=== PATIENT | female | born 1980 | race African-American/Black ===

== ENCOUNTER 2017-04-30 10:42 | Outpatient (CLI) ==
--- NOTE | 2017-04-30 12:39 | CT ---
EXAM: CT Abdomen without contrast. CT Pelvis without contrast. HISTORY: Nausea. Low back pain. Hematuria. COMPARISON: None available. TECHNIQUE: Multiple axial images of the abdomen and pelvis were obtained without intravenous contra st. Images were reformatted in the coronal plane. FINDINGS: Please note that evaluation of the abdominal and pelvic structures is limited due to lack of intravenous contrast. The lung bases are clear. No acute osseous abnormality identified. The liver is diffusely low density. Gallbladder is absent. Pancreas, spleen, adrenal glands demons trate normal contour. No calcified renal stones, hydronephrosis or perinephric inflammation identif ied. The bowel is normal in course and caliber without evidence for obstruction or inflammatory process. The appendix is normal. Scattered nonenlarged mesenteric and retroperitoneal lymph nodes are prese nt. Uterus demonstrates normal contour. Urinary bladder is unremarkable. Phleboliths noted in the pelvis. No free fluid or free air identified IMPRESSION: 1. No evidence for nephrolithiasis. No acute abnormality in the abdomen or pelvis. 2. Fatty infiltration of the liver.
== END 2017-04-30 10:43 | disposition home or self-care (01) ==
LOC: RAD 10:42
PROVIDERS: ATTEND Family Medicine
DX: R10.9 Unspecified abdominal pain (principal); R31.9 Hematuria, unspecified; R50.9 Fever, unspecified; R11.0 Nausea
CPT/HCPCS: 74176

== ENCOUNTER 2017-10-18 08:34 | Outpatient (RCR) ==
--- NOTE | 2017-10-18 15:52 | RS.OPPTEV2 ---
Date of Note: 10/18/17 Visit #: 1 Date of Evaluation: 10/18/17 Payer Source: Insurance Surgery Performed?: No Treatment Diagnosis: Neck pain and radicular symptoms into UE's. History of Condition/Mechanism of Injury:: Patient reports a history of neck pain. She attended therapy in 2013 for neck pain and stiffness. 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 States following therapy in 2013, she did well for a while and was taking Ibuprofen. She then discovered she had an ulcer and had to stop taking Ibuprofen. Her symptoms since then have progressively gotten worse. Prior Level of Function.....Patient was independent with: ADL's, Self Care, Work /Vocation, Caregiving, Ambulation/Mobility, Community Integration/Access Functional Limitations: Sleep, Self Care, ADL's Current Subjective/complaints:: Patient reports neck pain and radiating symptoms into the UE's. States she has continuous tingling into the 3rd and 4th fingers of both hands, unless she takes the Gabapentin. States she is having problems with headaches/migraines since November or December of this year. States she just had a migraine on Sunday. States she does not notice a lot of stiffness, but her neck hurts when she moves it. States her sleep is very much limited due to neck pain. 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 She reports typing at the computer increases her pain. She recently got a stand up desk, which she feels is going to help. Reports use of right UE causes increased pain in the right upper traps region. Medical History Surgical History: Cholecystectomy, Surgical History Comments:: Lung surgery Smoking Status: Never smoker Hx Home Medications: Gabapentin Patient's Goals: Her goal is to get relief of neck and UE symptoms. Pain Assessment - Pain Description Pain Location: neck Current Pain Intensity: 5/10 Worst Pain Intensity: 8/10 Functional Outcome Measure Neck Disability Index: 48 - G Codes & Severity Modifier G Codes & Modifier: NA Source of G Code score: NA Observation - Observation Posture: Forward Head, Rounded Shoulders, Scapula Asymmetry (right scapula raised) Handedness: Right - ROM Comments: Cervical AROM is WFL's. Demonstrates less AROM with left lateral flexion and left cervical rotation than compared to the right. Reports pain with range of motion at end range in all directions. - Strength Comments: UE strength is 5/5 throughout. Bilateral UE AROM is WFL's. - Special Tests VA Test: Negative Thoracic Outlet Test: Negative Left, Negative Right - Special Tests Shoulder Empty Can (Supraspinatus) Test: Negative Right Shoulder Yergason's Test: Negative Right Shoulder Speed's Sign Test: Negative Right Shoulder Drop Arm Test: Negative Right Shoulder Apley's Scratch Test: Negative Right Macerator Operator Strength Left Hand Macerator Operator Strength: 72 lbs. Right Hand Macerator Operator Strength: 75 lbs. Dynamometer Testing Position: 2nd Position Palpation Comments:: Demonstrates moderate increased muscle tone along the right upper and middle traps. She exhibits multiple active trigger points along the superior and medial border of the right scapula. Sensation - Sensation Comments: Reports current tingling in the 3rd and 4th digits of bilateral hands. Interventions - Exercise/Activities/Manual Therapy Exercises/Activities: Patient instructed in stretching into cervical lateral flexion, lateral flexion with horizontal adduction of ipsilateral UE, and corner stretch (pec stretch). Manual Therapy: x 10 mins Trigger point work to the upper traps. Located at two along the superior and medial border of the right scapula that radiated pain into the christian and up the cervical spine. HOME EXERCISE PROGRAM: stretching into cervical lateral flexion, lateral flexion with horizontal adduction of ipsilateral UE, and corner stretch (pec stretch). - Charges Timed Code Treatment Minutes: 10 mins Total Treatment Time: 55 mins Procedures billed for this date of service:: JUSTYN Mixon (manual therapy included in evaluation) Assessment Assessment: Patient presents to therapy with a diagnosis of Cervicalgia. She presents with reports of neck pain and continuous radiating symptoms. She describes difficulty using the right UE, due to right trap pain with movement of the right arm. Special Tests of right shoulder present no signs of RTC involvement. She reports her sleep is greatly limited due to her neck pain. States she works seven days a week and needs to be able to get rest at night. Demonstrates significant muscle guarding throughout the right upper and middle traps, with active trigger points along the superior and medial scapula. She demonstrates potential to get relief of neck pain and radiating symptoms with modalities, manual therapy, and progressed postural exercises. Patient Education: Education of diagnosis, Body/Joint mechanics, Home Exercise Program, Home Safety, Activity Modification, Education of Plan of Care Rehab Potential: Good Short Term Goals Goal #1: Muscle tone at right upper traps decreased to minimal. Goal to be met by: 11/01/17 Goal #2: Bilateral UE radiating symptoms decreased to less than daily. Goal to be met by: 11/01/17 Goal #3: Pt independent and compliant with HEP. Goal to be met by: 11/01/17 Residential Goals Goal #1: Pt knows HEP and to continue ex's at home to maintain functional level. Goal to be met by: 12/02/17 Goal #2: Patient able to perform work activities with minimal discomfort. Goal to be met by: 12/02/17 Goal #3: Patient able to sleep 6 hours per night without interruption from neck pain Goal to be met by: 12/02/17 Goal #4: Patient to demonstrate good postural awareness. Goal to be met by: 12/02/17 Plan - Treatment to be Provided Procedures: Therapeutic Exercises, Therapeutic Activity, Manual Therapy, Patient Education Modalities: Electrical Stimulation, Ultrasound/Phonophoresis, Class IV Laser, Cryotherapy, Hot Packs, Mechanical Traction (Cervical) - Treatment Plan Frequency: 3 X week Duration: 6 weeks ORDER # VISITS AND/OR THROUGH DATE: 12/02/17 - Treatment Code (1) Neck pain Code(s): M54.2 - CERVICALGIA Comments: M54.2
== END 2017-10-21 ==
PROVIDERS: ATTEND Orthopaedic Surgery Orthopaedic Surgery of the Spine
DX: M54.2 Cervicalgia (principal)

== ENCOUNTER → 2017-11-21 | Outpatient (RCR) ==
--- NOTE | 2017-10-23 09:57 | RS.OPPTDN ---
Subjective Date of Note: 10/23/17 Visit #: 2 Date of Evaluation: 10/18/17 Payer Source: Insurance Treatment Diagnosis: Neck pain and radicular symptoms into UE's. Current Subjective/complaints:: Patient reports increased right scapular and neck pain following initial treatemnt of manual therapy. She reports she is using the tennis balls she was given for trigger point work. Pain Assessment - Pain Description Pain Location: right neck, shoulder and mid scapular region Pain Description: Radiating, Aching Current Pain Intensity: moderate - Treatment Modality: Ultrasound Parameters/Method Applied: [id number] @ 1.5w/cm2 to the right mid scapular region, traps, and base of the cervical spine. Patient Position: Sitting - Heat/Cryotherapy Treatment: Hot Pack ([id number] along the right thoracic paraspinals and traps prior to US and MT. Patient in supine. ) Interventions - Exercise/Activities/Manual Therapy Exercises/Activities: [id number] Assisted stretching of cervical lateral flexion, bilaterally. Manually resissted cervical isometric retraction. Anterior chest stretch with towel roll along thoracic spine. Doorway anterior shest stretch, 3 position. Discussed scalene stretch with cervical lateral flexion and dropping shoulder while holding chair seat. Patient education of body mechanics, posture , and progression of HEP. Total minutes of Exercise: 10mins Manual Therapy: [id number] Trigger point work to the upper traps, cervical paraspinals and mid scapular musculature. Active trigger point at the right traps causing pain to radiate up over right ear, and mid scap trigger point with active radicular symptoms down right arm. Total minutes of Manual Therapy: 20mins HOME EXERCISE PROGRAM: stretching into cervical lateral flexion, lateral flexion with horizontal adduction of ipsilateral UE, and corner stretch (pec stretch). Isometric cervical retraction. Doorway anterior chest stretch, 3 position. - Charges Timed Code Treatment Minutes: 40mins Total Treatment Time: 60mins Procedures billed for this date of service:: HP, US, MT, EX Assessment: Patient with flair-up of pain with initial manual therapy. She appeared to tolerate session better today and should benefit from progressive stretching and postural correction exercise. Patient Education: Education of diagnosis, Body/Joint mechanics, Home Exercise Program Patient demonstrates compliance with HEP?: Yes Short Term Goals Goal #1: Muscle tone at right upper traps decreased to minimal. Goal to be met by: 11/01/17 Goal #2: Bilateral UE radiating symptoms decreased to less than daily. Goal to be met by: 11/01/17 Goal #3: Pt independent and compliant with HEP. 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 Goal to be met by: 12/02/17 Goal #2: Patient able to perform work activities with minimal discomfort. Goal to be met by: 12/02/17 Goal #3: Patient able to sleep 6 hours per night without interruption from neck pain Goal to be met by: 12/02/17 Goal #4: Patient to demonstrate good postural awareness. Goal to be met by: 12/02/17 Progress towards goal: Progressing Plan PLAN OF CARE EXPIRES ON:: 12/02/17 ORDER # VISITS AND/OR THROUGH DATE: 12/02/17 PLAN: Continue modalities, manual therapy, and progressive postural correction exercise to reduce pain and increase functional activity level.
--- NOTE | 2017-10-25 09:37 | RS.OPPTDN ---
Subjective Date of Note: 10/25/17 Visit #: 3 Date of Evaluation: 10/18/17 Payer Source: Insurance Treatment Diagnosis: Neck pain and radicular symptoms into UE's. Current Subjective/complaints:: Patient reports last treatment did not flair-up pain like first treatment. States she has had some reduction in muscle tension in the right traps. Pain Assessment - Pain Description Pain Location: Right mid scap, traps, and base of cervical paraspinals Current Pain Intensity: 5/10 - Treatment Modality: Ultrasound Parameters/Method Applied: [id number] at 1.5w/cm2 to the right mid scap, traps and base of cervical paraspinals prior to MT and EX. Patient Position: Sitting - Heat/Cryotherapy Treatment: Hot Pack ([id number] to the right mid scap, traps, and base of cervical spine. ) Interventions - Exercise/Activities/Manual Therapy Exercises/Activities: [id number] Assisted stretching of cervical lateral flexion, bilaterally. Manually resissted cervical isometric retraction. Green theraband for scapular retraction. Doorway anterior shest stretch, 3 position. Reveiwed education of body mechanics, posture, and progression of HEP. Total minutes of Exercise: 10mins Manual Therapy: [id number] Trigger point work to the upper traps, cervical paraspinals and mid scapular musculature. Active trigger point at the right traps causing pain to radiate up over right ear, and mid scap trigger point with active radicular symptoms down right arm. Total minutes of Manual Therapy: 20mins HOME EXERCISE PROGRAM: stretching into cervical lateral flexion, lateral flexion with horizontal adduction of ipsilateral UE, and corner stretch (pec stretch). Isometric cervical retraction. Doorway anterior chest stretch, 3 position. - Charges Timed Code Treatment Minutes: 40mins Total Treatment Time: 60mins Procedures billed for this date of service:: HP, US, MT, EX Assessment: Patient reports some progress with muscle tension and is consistently working on HEP. She is able to progress to resistive postural strengthening with therabands. Patient Education: Body/Joint mechanics, Home Exercise Program Patient demonstrates compliance with HEP?: Yes Short Term Goals Goal #1: Muscle tone at right upper traps decreased to minimal. Goal to be met by: 11/01/17 Progress towards Goal:: Progressing Goal #2: Bilateral UE radiating symptoms decreased to less than daily. Goal to be met by: 11/01/17 Progress towards Goal:: Progressing Goal #3: Pt independent and compliant with HEP. Goal to be met by: 11/01/17 Progress towards Goal:: Progressing Superintendent Track Goals Goal #1: Pt knows HEP and to continue ex's at home to maintain functional level. Goal to be met by: 12/02/17 Progress towards goal: Progressing Goal #2: Patient able to perform work activities with minimal discomfort. Goal to be met by: 12/02/17 Goal #3: Patient able to sleep 6 hours per night without interruption from neck pain Goal to be met by: 12/02/17 Goal #4: Patient to demonstrate good postural awareness. Goal to be met by: 12/02/17 Progress towards goal: Progressing Plan PLAN OF CARE EXPIRES ON:: 12/02/17 ORDER # VISITS AND/OR THROUGH DATE: 12/02/17 PLAN: Continue modalites, manual therapy and postural correction exercise to reduce pain and increase functional activity level.
--- NOTE | 2017-11-02 12:04 | RS.OPPTDN ---
Subjective Date of Note: 10/31/17 Visit #: 4 Date of Evaluation: 10/18/17 Payer Source: Insurance Treatment Diagnosis: Neck pain and radicular symptoms into UE's. Current Subjective/complaints:: Patient reports being sore after last session. States she is trying to do some stretching at work and home. - Treatment Modality: Ultrasound Parameters/Method Applied: 1.5 w/cm2 X 12 mins to bilateral upper traps and cervical paraspinals to reduce muscle tone. Patient Position: Sitting - Heat/Cryotherapy Treatment: Hot Pack (X 15 mins to bilateral upper traps (2 cervical pads)) Interventions - Exercise/Activities/Manual Therapy Exercises/Activities: No exercises today, patient encouraged to perform stretching and postural exercises at work and home. Manual Therapy: x 15mins Trigger point work to the upper traps, cervical paraspinals and mid scapular musculature. Active trigger points found along bilateral upper traps along the superior border of the scapula. Also demonstrates an active trigger point at the base of the medial border of the right scapula. HOME EXERCISE PROGRAM: stretching into cervical lateral flexion, lateral flexion with horizontal adduction of ipsilateral UE, and corner stretch (pec stretch). Isometric cervical retraction. Doorway anterior chest stretch, 3 position. - Charges Timed Code Treatment Minutes: 27 mins Total Treatment Time: 42 mins Procedures billed for this date of service:: hp, US, manual therapy Assessment: Patient with continued active trigger points with muscle guarding in the upper traps. She is very receptive to advice and instructions to help reduce strain on the neck at home and work. Exercises not performed today due to time constraints. Short Term Goals Goal #1: Muscle tone at right upper traps decreased to minimal. Goal to be met by: 11/01/17 Progress towards Goal:: Progressing Goal #2: Bilateral UE radiating symptoms decreased to less than daily. Goal to be met by: 11/01/17 Progress towards Goal:: Progressing Goal #3: Pt independent and compliant with HEP. 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 Goal to be met by: 12/02/17 Progress towards goal: Progressing Goal #2: Patient able to perform work activities with minimal discomfort. Goal to be met by: 12/02/17 Goal #3: Patient able to sleep 6 hours per night without interruption from neck pain Goal to be met by: 12/02/17 Goal #4: Patient to demonstrate good postural awareness. Goal to be met by: 12/02/17 Progress towards goal: Progressing Plan PLAN OF CARE EXPIRES ON:: 12/02/17 ORDER # VISITS AND/OR THROUGH DATE: 12/02/17 PLAN: continue treatment to decrease muscle guarding and progress postural stability exercises.
--- NOTE | 2017-11-02 12:19 | RS.OPPTDN ---
Subjective Date of Note: 11/02/17 Visit #: 5 Date of Evaluation: 10/18/17 Payer Source: Insurance Treatment Diagnosis: Neck pain and radicular symptoms into UE's. Current Subjective/complaints:: Patient asks if trigger point areas ever go away. States she has been trying to remember to perform stretching at work. States using the stand up desk has helped. Reports having to hide her therabands so her children won't play with them. - Treatment Modality: Ultrasound Parameters/Method Applied: X 12 mins to bilateral cervical paraspinals, upper and middle traps to reduce muscle tone. Patient Position: Sitting - Heat/Cryotherapy Treatment: Hot Pack (X 15 mins to bilateral upper traps prior to US) Interventions - Exercise/Activities/Manual Therapy Exercises/Activities: Assisted patient with stretching into lateral flexion bilaterally. Pin and stretch method used for right upper traps. Reviewed doorway stretch or corner stretch and emphasized performing these to breakup sitting or working at computer. Total minutes of Exercise: X 5 mins Manual Therapy: x 18mins Trigger point work to the upper traps, cervical paraspinals and mid scapular musculature. Active trigger points found along bilateral upper traps along the superior border of the scapula. These both radiate pain up the sides of the neck. HOME EXERCISE PROGRAM: stretching into cervical lateral flexion, lateral flexion with horizontal adduction of ipsilateral UE, and corner stretch (pec stretch). Isometric cervical retraction. Doorway anterior chest stretch, 3 position. - Charges Timed Code Treatment Minutes: 35 mins Total Treatment Time: 50 mins Procedures billed for this date of service:: manual therapy, US, ex Assessment: Patient with continued muscle guarding and active trigger points. She demonstrates potential to gain relief of muscle guarding with continued therapy. She may benefit from US combo to assist with decreasing muscle tone. Patient Education: Education of diagnosis, Home Exercise Program, Activity Modification, Education of Plan of Care Patient demonstrates compliance with HEP?: Yes Short Term Goals Goal #1: Muscle tone at right upper traps decreased to minimal. Goal to be met by: 11/01/17 Progress towards Goal:: Progressing Goal #2: Bilateral UE radiating symptoms decreased to less than daily. Goal to be met by: 11/01/17 Progress towards Goal:: Progressing Goal #3: Pt independent and compliant with HEP. Goal to be met by: 11/01/17 Progress towards Goal:: Progressing Medical Reception Goals Goal #1: Pt knows HEP and to continue ex's at home to maintain functional level. Goal to be met by: 12/02/17 Progress towards goal: Progressing Goal #2: Patient able to perform work activities with minimal discomfort. Goal to be met by: 12/02/17 Goal #3: Patient able to sleep 6 hours per night without interruption from neck pain Goal to be met by: 12/02/17 Goal #4: Patient to demonstrate good postural awareness. Goal to be met by: 12/02/17 Progress towards goal: Progressing Plan PLAN OF CARE EXPIRES ON:: 12/02/17 ORDER # VISITS AND/OR THROUGH DATE: 12/02/17 PLAN: May try US with Estim and progress postural stability exercises.
--- NOTE | 2017-11-06 09:50 | RS.OPPTDN ---
Subjective Date of Note: 11/06/17 Visit #: 6 Date of Evaluation: 10/18/17 Payer Source: Insurance Treatment Diagnosis: Neck pain and radicular symptoms into UE's. Current Subjective/complaints:: Patient reports neck and upper trap pain is improving but she is having more pain in the anterior right shoulder joint. Pain Assessment - Pain Description Pain Location: neck, upper traps, right anterior shoulder joint Pain Description: Sharp, Aching Pain Description: mild to mod Other Comments regarding Pain:: Reports right shoulder pain limits her sleep - Treatment Modality: Ultrasound Parameters/Method Applied: [id number] total. US at 1.5w/cm2 to the bilateral upper traps with focu on right and on the right anterior shoulder joint. Patient Position: Sitting - Heat/Cryotherapy Treatment: Hot Pack ([id number] to the bilateral upper traps prior to US and MT. Patient in supine. ) Interventions - Exercise/Activities/Manual Therapy Exercises/Activities: Reviewed HEP and patient given additional therabands for progression of resistance. Total minutes of Exercise: 2mins Manual Therapy: [id number]. Trigger point work to the upper traps, cervical paraspinals and mid scapular musculature. Active trigger points found at bilateral upper traps. Friction massage to the right anterior shoulder joint at the origin of the biceps tendon. Total minutes of Manual Therapy: 20mins HOME EXERCISE PROGRAM: stretching into cervical lateral flexion, lateral flexion with horizontal adduction of ipsilateral UE, and corner stretch (pec stretch). Isometric cervical retraction. Doorway anterior chest stretch, 3 position. Scapular retraction with green theraband, progressing to blue. - Charges Timed Code Treatment Minutes: 36mins Total Treatment Time: 56mins Procedures billed for this date of service:: HP, US, MT Assessment: Patient consitently working on HEP and seeing improvement in neck and upper back pain. She should benefit from friction massage to the right anterior shoulder for pain relief. Patient Education: Body/Joint mechanics, Home Exercise Program Patient demonstrates compliance with HEP?: Yes Short Term Goals Goal #1: Muscle tone at right upper traps decreased to minimal. Goal to be met by: 11/01/17 Progress towards Goal:: Progressing Goal #2: Bilateral UE radiating symptoms decreased to less than daily. Goal to be met by: 11/01/17 Progress towards Goal:: Progressing Goal #3: Pt independent and compliant with HEP. Goal to be met by: 11/01/17 Progress towards Goal:: Progressing Fdc Goals Goal #1: Pt knows HEP and to continue ex's at home to maintain functional level. Goal to be met by: 12/02/17 Progress towards goal: Progressing Goal #2: Patient able to perform work activities with minimal discomfort. Goal to be met by: 12/02/17 Goal #3: Patient able to sleep 6 hours per night without interruption from neck pain Goal to be met by: 12/02/17 Goal #4: Patient to demonstrate good postural awareness. Goal to be met by: 12/02/17 Progress towards goal: Progressing Plan PLAN OF CARE EXPIRES ON:: 12/02/17 ORDER # VISITS AND/OR THROUGH DATE: 12/02/17 PLAN: Progress postural strengthening.
--- NOTE | 2017-11-08 09:41 | RS.OPPTDN ---
Subjective Date of Note: 11/08/17 Visit #: 7 Date of Evaluation: 10/18/17 Payer Source: Insurance Treatment Diagnosis: Neck pain and radicular symptoms into UE's. Current Subjective/complaints:: Patient reports neck and upper trap pain is improving, but right anterior shoulder jont pain continues to be a problem at night when trying to go to sleep. - Treatment Modality: Ultrasound Parameters/Method Applied: [id number] at 1.5w/cm2 to the bilateral cervical paraspinals, traps, and right ant shldr joint prior to EX. Patient Position: Sitting - Heat/Cryotherapy Treatment: Hot Pack ([id number] to the bilateral upper traps. Supine position. ) Interventions - Exercise/Activities/Manual Therapy Exercises/Activities: Reviewed HEP and postural correction. Began red theraband for bilateral shoulder ER. Patient given copy of new exercise and red tband for HEP. Total minutes of Exercise: 8mins Manual Therapy: [id number]. Trigger point work to the upper traps, cervical paraspinals and mid scapular musculature. Active trigger points found at the mid left scapular border. Friction massage to the right anterior shoulder joint at the origin of the biceps tendon. Total minutes of Manual Therapy: 20mins HOME EXERCISE PROGRAM: stretching into cervical lateral flexion, lateral flexion with horizontal adduction of ipsilateral UE, and corner stretch (pec stretch). Isometric cervical retraction. Doorway anterior chest stretch, 3 position. Scapular retraction with green theraband, progressing to blue. - Charges Timed Code Treatment Minutes: 40mins Total Treatment Time: 60mins Procedures billed for this date of service:: HP, US, MT, EX Assessment: Patient progressing with reports of decreased pain in necka nd upper traps. She should benefit from friction massage and increased shoulder strengthening exercise. Patient Education: Education of diagnosis, Body/Joint mechanics, Home Exercise Program, Activity Modification Patient demonstrates compliance with HEP?: Yes Short Term Goals Goal #1: Muscle tone at right upper traps decreased to minimal. Goal to be met by: 11/01/17 Progress towards Goal:: Progressing Goal #2: Bilateral UE radiating symptoms decreased to less than daily. Goal to be met by: 11/01/17 Progress towards Goal:: Progressing Goal #3: Pt independent and compliant with HEP. Goal to be met by: 11/01/17 Progress towards Goal:: Met [facility] Goals Goal #1: Pt knows HEP and to continue ex's at home to maintain functional level. Goal to be met by: 12/02/17 Progress towards goal: Progressing Goal #2: Patient able to perform work activities with minimal discomfort. Goal to be met by: 12/02/17 Progress towards goal: Progressing Goal #3: Patient able to sleep 6 hours per night without interruption from neck pain Goal to be met by: 12/02/17 Progress towards goal: Progressing Goal #4: Patient to demonstrate good postural awareness. Goal to be met by: 12/02/17 Progress towards goal: Met Plan PLAN OF CARE EXPIRES ON:: 12/02/17 ORDER # VISITS AND/OR THROUGH DATE: 12/02/17 PLAN: Continue modalities, manual therapy, and progressive exercise to reduce pain and increase functional activity level.
--- NOTE | 2017-11-13 11:49 | RS.OPPTDN ---
Subjective Date of Note: 11/13/17 Visit #: 8 Date of Evaluation: 10/18/17 Payer Source: Insurance Treatment Diagnosis: Neck pain and radicular symptoms into UE's. Current Subjective/complaints:: Patient reports no symptoms in the right UE, but having tingling in the last 3 fingers of the left hand. Reports no radicular symptoms following treatment. Pain Assessment - Pain Description Pain Location: bilateral upper traps, left hand Pain Description: Radiating, Dull, Aching Pain Description: tingling last 3 fingers left hand Current Pain Intensity: does not rate - Treatment Modality: Ultrasound Parameters/Method Applied: [id number] at 1.5w/cm2 to the bilateral upper traps and base of the cervical paraspinals following to TX. Patient Position: Sitting - Heat/Cryotherapy Treatment: Hot Pack ([id number] to the bialtearl upper traps prior to TX and US. Patient in sitting. ) - Traction Treatment Method: Mechanical, Intermittent, Cervical Patient Position: Supine Amount of Force Applied: Began 13# with progression to 18# Hold Time: 30sec Rest Time: 5sec Duration of treatment: 15mins Interventions - Exercise/Activities/Manual Therapy Exercises/Activities: Reviewed HEP and postural correction. Assisted long stretches into lateral cervical flexion and levator scapula. Isometric cervical retraction. Scap retraction. Total minutes of Exercise: 10mins Manual Therapy: [id number]. Trigger point work to the upper traps and cervical paraspinals. Active trigger points found at the left traps trigger point, with reported radicular symptoms over left ear to yarsanism. Reported release with long hold trigger point pressure. Total minutes of Manual Therapy: 10mins HOME EXERCISE PROGRAM: stretching into cervical lateral flexion, lateral flexion with horizontal adduction of ipsilateral UE, and corner stretch (pec stretch). Isometric cervical retraction. Doorway anterior chest stretch, 3 position. Scapular retraction with green theraband, progressing to blue. - Charges Timed Code Treatment Minutes: 30mins Total Treatment Time: 60mins Procedures billed for this date of service:: HP, TX mechanical, US, EX Assessment: Patient responded well to treatment with report of reduction in symptoms in the left hand. Patient Education: Home Exercise Program Patient demonstrates compliance with HEP?: Yes Short Term Goals Goal #1: Muscle tone at right upper traps decreased to minimal. Goal to be met by: 11/01/17 Progress towards Goal:: Progressing Goal #2: Bilateral UE radiating symptoms decreased to less than daily. Goal to be met by: 11/01/17 Progress towards Goal:: Regressing Comments:: Left hand radiculopathy today Goal #3: Pt independent and compliant with HEP. Goal to be met by: 11/01/17 Progress towards Goal:: Met [employer]er Goals Goal #1: Pt knows HEP and to continue ex's at home to maintain functional level. Goal to be met by: 12/02/17 Progress towards goal: Progressing Goal #2: Patient able to perform work activities with minimal discomfort. Goal to be met by: 12/02/17 Progress towards goal: Progressing Goal #3: Patient able to sleep 6 hours per night without interruption from neck pain Goal to be met by: 12/02/17 Progress towards goal: Progressing Goal #4: Patient to demonstrate good postural awareness. Goal to be met by: 12/02/17 Progress towards goal: Met Plan PLAN OF CARE EXPIRES ON:: 12/02/17 ORDER # VISITS AND/OR THROUGH DATE: 12/02/17 PLAN: Progress mechanical traction as indicated to reduce radicular symptoms.
--- NOTE | 2017-11-16 11:51 | RS.OPPTDN ---
Subjective Date of Note: 11/16/17 Visit #: 9 Date of Evaluation: 10/18/17 Payer Source: Insurance Treatment Diagnosis: Neck pain and radicular symptoms into UE's. Current Subjective/complaints:: Patient reports left UE symptoms have resolved. States her main area of pain continues to be at the right anterior shoulder joint. States discomfort increases at night and limits her sleep. Pain Assessment - Pain Description Pain Location: Right anterior shoulder joint, bilateral traps Current Pain Intensity: mild at traps, mild to mod at right shoulder - Treatment Modality: Ultrasound Parameters/Method Applied: [id number] at 1.5w/cm2 to the bilateral traps and with anterior right shoulder joint. - Heat/Cryotherapy Treatment: Hot Pack ([id number] to the bilateral traps and right shoulder prior to US. Patient in sitting. ) Interventions - Exercise/Activities/Manual Therapy Exercises/Activities: Assisted long stretches into lateral cervical flexion and levator scapula. Isometric cervical retraction. Scap retraction. Total minutes of Exercise: 3mins Manual Therapy: [id number]. Trigger point work to the upper traps and cervical paraspinals. Focus on friction massage to the right anterior shoulder joint at the biceps tendon. Total minutes of Manual Therapy: 17mins HOME EXERCISE PROGRAM: stretching into cervical lateral flexion, lateral flexion with horizontal adduction of ipsilateral UE, and corner stretch (pec stretch). Isometric cervical retraction. Doorway anterior chest stretch, 3 position. Scapular retraction with green theraband, progressing to blue. - Charges Timed Code Treatment Minutes: 32mins Total Treatment Time: 52mins Procedures billed for this date of service:: HP, US, MT Assessment: Patient has responded well to treatment to reduce pain in the neck, upper traps, and radicular symptoms in left UE/hand. Right anterior shoulder pain is a problem but patient is seeing progress. Patient Education: Home Exercise Program Patient demonstrates compliance with HEP?: Yes Short Term Goals Goal #1: Muscle tone at right upper traps decreased to minimal. Goal to be met by: 11/01/17 Progress towards Goal:: Partially Met Goal #2: Bilateral UE radiating symptoms decreased to less than daily. Goal to be met by: 11/01/17 Progress towards Goal:: Met Goal #3: Pt independent and compliant with HEP. Goal to be met by: 11/01/17 Progress towards Goal:: Met Residential Goals Goal #1: Pt knows HEP and to continue ex's at home to maintain functional level. Goal to be met by: 12/02/17 Progress towards goal: Progressing Goal #2: Patient able to perform work activities with minimal discomfort. Goal to be met by: 12/02/17 Progress towards goal: Progressing Goal #3: Patient able to sleep 6 hours per night without interruption from neck pain Goal to be met by: 12/02/17 Progress towards goal: Progressing Goal #4: Patient to demonstrate good postural awareness. Goal to be met by: 12/02/17 Progress towards goal: Met Plan PLAN OF CARE EXPIRES ON:: 12/02/17 ORDER # VISITS AND/OR THROUGH DATE: 12/02/17 PLAN: Continue modalities and progress exercise at indicated.
--- NOTE | 2017-11-21 10:18 | RS.OPPTDN ---
Subjective Date of Note: 11/21/17 Visit #: 10 Date of Evaluation: 10/18/17 Payer Source: Insurance Treatment Diagnosis: Neck pain and radicular symptoms into UE's. Current Subjective/complaints:: Patient reports she is pleased with progress. States when she started the movement of her neck seemed "locked-up" and she now has good AROM. Reports right shoulder joint pain is improving. Reports an increase in daily activities without increased pain. Agrees to reassess progress next week and prepare for discharge if indicated. Pain Assessment - Pain Description Pain Location: Right anterior shoulder joint, neck Current Pain Intensity: mild at right anterior shoulder joint and at upper right cervical Other Comments regarding Pain:: Mod+ discomfort with MT release at an active trigger point right upper cervical. - Treatment Modality: Ultrasound Parameters/Method Applied: [id number] at 1.5w/cm2 to the bilateral cervical paraspinals, bilateral traps, and right anterior shoulder joint. Patient Position: Sitting - Heat/Cryotherapy Treatment: Hot Pack ([id number] to base of c-spine, bilateral traps and shoulder joints. Patient in sitting. ) Interventions - Exercise/Activities/Manual Therapy Exercises/Activities: Assisted long stretches into lateral cervical flexion and levator scapula. Isometric cervical retraction. Discussed cureent HEP. Total minutes of Exercise: 5mins Manual Therapy: [id number]. Trigger point work to the upper traps and cervical paraspinals. Released active trigger point at the upper right cervical paraspinals. Friction massage to the right anterior shoulder joint at the biceps tendon. Total minutes of Manual Therapy: 15mins HOME EXERCISE PROGRAM: stretching into cervical lateral flexion, lateral flexion with horizontal adduction of ipsilateral UE, and corner stretch (pec stretch). Isometric cervical retraction. Doorway anterior chest stretch, 3 position. Scapular retraction with green theraband, progressing to blue. - Charges Timed Code Treatment Minutes: 32mins Total Treatment Time: 52mins Procedures billed for this date of service:: HP, US, MT Assessment: Patient continues to reports consistent improvement with decreased pain and increase in functional activity. Patient Education: Home Exercise Program Patient demonstrates compliance with HEP?: Yes Short Term Goals Goal #1: Muscle tone at right upper traps decreased to minimal. Goal to be met by: 11/01/17 Progress towards Goal:: Partially Met Goal #2: Bilateral UE radiating symptoms decreased to less than daily. Goal to be met by: 11/01/17 Progress towards Goal:: Met Goal #3: Pt independent and compliant with HEP. Goal to be met by: 11/01/17 Progress towards Goal:: Met Longterm Goals Goal #1: Pt knows HEP and to continue ex's at home to maintain functional level. Goal to be met by: 12/02/17 Progress towards goal: Met Goal #2: Patient able to perform work activities with minimal discomfort. Goal to be met by: 12/02/17 Progress towards goal: Met Goal #3: Patient able to sleep 6 hours per night without interruption from neck pain Goal to be met by: 12/02/17 Progress towards goal: Partially Met Goal #4: Patient to demonstrate good postural awareness. Goal to be met by: 12/02/17 Progress towards goal: Met Plan PLAN OF CARE EXPIRES ON:: 12/02/17 ORDER # VISITS AND/OR THROUGH DATE: 12/02/17 PLAN: See patient next week to reassess progress and finalized additons to HEP. Prepare for discharge if indicated.
== END ==
PROVIDERS: ATTEND Orthopaedic Surgery Orthopaedic Surgery of the Spine
DX: M54.2 Cervicalgia (principal)

== ENCOUNTER 2017-11-27 08:24 | Outpatient (RCR) ==
--- NOTE | 2017-11-27 13:46 | RS.OPPTDN ---
Subjective Date of Note: 11/27/17 Visit #: 11 Date of Evaluation: 10/18/17 Payer Source: Insurance Treatment Diagnosis: Neck pain and radicular symptoms into UE's. Current Subjective/complaints:: Patient reports she has progressed well with treatment and will continue HEP following discharge. Pain Assessment - Pain Description Pain Location: neck and upper traps, right anterior shoulder joint Current Pain Intensity: mild Other Comments regarding Pain:: Patient reports neck and bilateral upper trap pain is much better. Reports right shoulder pain is mild during the day, but continues to increase at night. She feels she is reaching a plateau in progress , but will continue HEP following discharge. - Treatment Modality: Ultrasound Parameters/Method Applied: [id number] at 1.5w/cm2 to the bilateral upper traps and right anterior shoulder joint prior to MT and EX. Patient Position: Sitting - Heat/Cryotherapy Treatment: Hot Pack ([id number] to the bilateral uper traps and right shoulder joint. Patient in sitting. ) Interventions - Exercise/Activities/Manual Therapy Exercises/Activities: x8mins Assisted long stretches into lateral cervical flexion and levator scapula. Isometric cervical retraction. Isometric right shoulder IR and ER. Reviewed theraband for scap retraction and bilateral shoulder ER. Total minutes of Exercise: 8mins Manual Therapy: x7mins. Trigger point work to the upper traps and cervical paraspinals. Friction massage to the right anterior shoulder joint at the biceps tendon. Total minutes of Manual Therapy: 7mins HOME EXERCISE PROGRAM: stretching into cervical lateral flexion, lateral flexion with horizontal adduction of ipsilateral UE, and corner stretch (pec stretch). Isometric cervical retraction. Doorway anterior chest stretch, 3 position. Scapular retraction with green theraband, progressing to blue. - Objective Findings Observations,measurements,etc.: Patient demos good ROM of the right shoulder joint and has no active trigger points today. She is independent with HEP and demos good postural awareness. - Charges Timed Code Treatment Minutes: 27mins Total Treatment Time: 50mins Procedures billed for this date of service:: HP, US, EX Assessment: Patient has progressed well and benefitted from treatment. She has met all treatment goals. She will continue HEP. Patient Education: Body/Joint mechanics, Home Exercise Program, Home Safety, Activity Modification, Education of Plan of Care Patient demonstrates compliance with HEP?: Yes Short Term Goals Goal #1: Muscle tone at right upper traps decreased to minimal. Goal to be met by: 11/01/17 Progress towards Goal:: Met Goal #2: Bilateral UE radiating symptoms decreased to less than daily. Goal to be met by: 11/01/17 Progress towards Goal:: Met Goal #3: Pt independent and compliant with HEP. Goal to be met by: 11/01/17 Progress towards Goal:: Met Spoke [employer] Goals Goal #1: Pt knows HEP and to continue ex's at home to maintain functional level. Goal to be met by: 12/02/17 Progress towards goal: Met Goal #2: Patient able to perform work activities with minimal discomfort. Goal to be met by: 12/02/17 Progress towards goal: Met Goal #3: Patient able to sleep 6 hours per night without interruption from neck pain Goal to be met by: 12/02/17 Progress towards goal: Met Goal #4: Patient to demonstrate good postural awareness. Goal to be met by: 12/02/17 Progress towards goal: Met Plan PLAN OF CARE EXPIRES ON:: 12/02/17 ORDER # VISITS AND/OR THROUGH DATE: 12/02/17 PLAN: Discharge with HEP.
--- NOTE | 2017-11-27 13:47 | RS.QUICKDC ---
Discharge from PT Date of Discharge: 11/27/17 Number of Visits: 11 Reason for Discharge: Patient progressed well and benefitted from treatment. She met all tretament goals and was independent with HEP. Discharge at this time.
== END 2017-12-19 ==
PROVIDERS: ATTEND Orthopaedic Surgery Orthopaedic Surgery of the Spine
DX: M54.2 Cervicalgia (principal)

== ENCOUNTER 2018-03-12 14:06 | Outpatient (CLI) | END 2018-03-12 14:07 | disposition home or self-care (01) | LOC: LAB 14:06 | PROVIDERS: ATTEND Psychiatry & Neurology Neurology | DX: R93.7 Abnormal findings on diagnostic imaging of other parts of musculoskeletal system (principal) | CPT/HCPCS: 81025 ==